=== PATIENT | female | born 1990 | race Caucasian/White ===

== ENCOUNTER 2019-05-02 20:58 | Emergency (ER) | payer BC, SELFPAY ==
[2019-05-02 20:59] VITALS: BP 118/80; PULSE 82; RESP 16; TEMP 37.1; O2SAT 98; BMI 21.1
--- NOTE | 2019-05-02 22:12 | ED.VIS.GEN ---
History of Present Illness Chief Complaint: Dental Narrative: Patient is a 29-year-old female who presents with dental pain. She previously had a crown on her right mandibular first molar. Her crown fell out and she began to have pain. She had a root canal 5 days ago. Her pain has been controlled with [place] and ibuprofen however she states it is taking longer for the pain medication to work and her pain is returning earlier. No fevers. No vomiting. Visitor notes that her jaw was swollen yesterday as well. Past Medical History - Allergies and Home Meds Allergies/Adverse Reactions: Allergies No Known Allergies Allergy (Verified 05/02/19 21:02) Primary Care Physician: Elmira Wallace MD [Primary Care Provider] - Past Medical History: None Smoking Status: Never smoker Review of Systems All systems negative except as indicated ENT: Reports: - - Oral pain Physical Exam Vital Signs/Narrative: Vital Signs Temp Pulse Resp BP Pulse Ox 05/02/19 20:59 98.8 F 82 16 118/80 98 Inital Vital Signs reviewed: Yes General: Well nourished Head: Normocephalic Eyes: EOMI ENT: Moist mucous membranes, - - No clot visualized at the site of dental extraction she does not have any focal abscess she does not have trismus she has clear speech Cardiovascular: Regular rate Respiratory: No distress Skin: Normal color Neurological: Alert Psychological: Normal affect Diagnostic/Tx/Re-eval - Medical Decision Making Patient's presentation is most consistent with dry socket. Dry socket paste was applied at the site of extraction. We will also start her back on antibiotics. She was given first dose of penicillin here. I also offered a dental block which she declined. She does have a follow-up appointment this coming Saturday with her dentist. She was advised to keep this appointment and does understand to return for new or worsening symptoms. ED Disposition - Plan for ED Patient: Disposition: Home or Assisted Living Diagnosis: Dry socket Instructions: Dry Socket Prescriptions: Penicillin V Potassium 500 mg PO 4X/DAY #40 tab Prescription Printed Referrals: Elmira Wallace MD [Primary Care Provider] -
[2019-05-02] MEDS: Penicillin Vk 250 MG Tablet 500 MG PO (22:19)
[2019-05-02 22:27] VITALS: RESP 16
== END 2019-05-02 22:28 | disposition home or self-care (01) ==
PROVIDERS: Emergency Provider Emergency Medicine; Family Provider Family Medicine; PCP Family Medicine
DX: M27.3 Alveolitis of jaws (principal)
CPT/HCPCS: 99283

== ENCOUNTER → 2019-08-20 14:31 | Outpatient (CLI) | payer OTHER, BC, SELFPAY ==
[2019-06-01 10:41] VITALS: BMI 21.1
--- NOTE | 2019-08-20 14:31 | RAD_ITS ---
STUDY: X-RAY - SACRUM/COCCYX REASON FOR EXAM: Female, 29 years old. FALL PAIN OVER COCCYX TECHNIQUE: 3 view(s) of the sacrum and coccyx were obtained. COMPARISON: None. FINDINGS: There is no fracture lucency or cortical step-off. No compression deformity is identified within lumbar vertebral bodies included within the [id number]. The bowel gas pattern appears unremarkable. There is no plain film evident intra-abdominal mass or mass effect. No pathologic calcifications are identified. There is no plain film evidence of lytic or blastic suspicious osseous pathology. RAD/Sacrum-Coccyx min 2 Views IMPRESSION: No evident acute osseous abnormality. However, if lumbar spine pain is identified in this patient status post antecedent trauma, consider dedicated lumbar spine series. Electronically Signed: Thang Pettit MD at 15:25 EST , Service support ,
== END ==
PROVIDERS: Family Provider Family Medicine; PCP Family Medicine; Referring Provider Physician Assistant; Visit Provider Physician Assistant
DX: M53.3 Sacrococcygeal disorders, not elsewhere classified (principal)
CPT/HCPCS: 72220

== ENCOUNTER → 2020-07-26 11:08 | Outpatient (CLI) | payer BC, SELFPAY ==
[2019-08-25 15:12] VITALS: BMI 21.1
[2020-07-29 06:16] LABS: HPV APTIMA, High Risk Negative (Negative)
== END ==
PROVIDERS: PCP Family Medicine; Visit Provider Student in an Organized Health Care Education/Training Program
DX: Z12.4 Encounter for screening for malignant neoplasm of cervix (principal)
CPT/HCPCS: 87624; 88175; G0145

== ENCOUNTER → 2020-11-18 09:53 | Outpatient (CLI) | payer BC, SELFPAY ==
[2019-08-25 15:12] VITALS: BMI 21.1
[2020-11-18 12:58] LABS: Anion Gap 6 (5-15); BUN 14 mg/dL (7-18); BUN/Creat Ratio 17.3 RATIO (10-20); Calcium,Total 9.1 mg/dL (8.5-10.1); Chloride 108 mmol/L (98-107); Cholesterol 174 mg/dL (200); Creatinine, Serum 0.81 mg/dL (0.55-1.02); EST Glomerular Filtration Rate 87 mL/min (>60); Est Glom Filt Rate - Afr Amer 105 mL/min (>60); Glucose 71 mg/dL (74-106); High Density Lipoprotein 95 mg/dL; Potassium 4.2 mmol/L (3.5-5.1); Sodium Level 139 mmol/L (136-145); Triglycerides 56 mg/dL; Very Low Density Lipoprotein 11 mg/dL (5-40)
== END ==
PROVIDERS: PCP Family Medicine; Referring Provider Family Medicine; Visit Provider Family Medicine
DX: Z00.00 Encounter for general adult medical examination without abnormal findings (principal)
CPT/HCPCS: 36415; 80048; 80061

== ENCOUNTER → 2022-04-06 | Outpatient (CLI) | payer BC, SELFPAY ==
[2022-04-06 12:51] LABS: Hemoglobin A1c 5.1 % (3.8-5.6)
[2022-04-06 13:21] LABS: Estradiol 73.1 pg/mL; Follicle Stimulating Hormone 9.6 mIU/mL; Luteinizing Hormone 5.2 mIU/mL; Thyroid Stim Hormone (TSH) 1.34 uIU/mL (0.358-3.74)
== END | disposition home or self-care (01) ==
LOC: WOBLAB 11:03
PROVIDERS: PCP Family Medicine; Visit Provider Student in an Organized Health Care Education/Training Program
DX: N97.9 Female infertility, unspecified (principal)
CPT/HCPCS: 36415; 82670; 83001; 83002; 83036; 84146; 84443

== ENCOUNTER → 2022-10-05 | Outpatient (CLI) | payer BC, SELFPAY ==
[2022-10-05 19:01] LABS: Progesterone Level 71.19 ng/mL (See Comment)
== END | disposition home or self-care (01) ==
LOC: WOBLAB 13:11
PROVIDERS: PCP Family Medicine; Visit Provider Student in an Organized Health Care Education/Training Program
DX: N97.9 Female infertility, unspecified (principal)
CPT/HCPCS: 36415; 84144